=== PATIENT | male | born 1980 | race Two or more races ===

== ENCOUNTER 2020-08-01 21:24 | Emergency (ER) | payer SELFPAY ==
[2020-08-01 21:29] VITALS: Wt 100.0 kg
[2020-08-01 22:00] LABS: BASOPHILS 0.5 % (0-2); EOSINOPHILS 1.3 % (0-7); HEMATOCRIT 42.5 % (42.0-54.0); IMMATURE GRANULOCYTES 0.1 % (0-5); LYMPHOCYTE ABS# 1.83 10x3/uL (1.32-3.57); MCH 35.5 pg (26.0-34.0); MCHC 35.3 g/dL (31.0-37.0); MCV 100.5 fL (80.0-100.0); MEAN PLATELET VOLUME 10.4 fL (7.4-10.4); MONOCYTES 9.7 % (2-11); NEUTROPHIL ABS# 5.19 10x3/uL (1.78-5.38); NEUTROPHILS 65.4 % (40-80); PLATELET COUNT 150 10x3/uL (130-400); RBC 4.23 10x6/uL (4.20-6.10); RDW 11.8 % (11.5-14.5); WBC 7.9 10x3/uL (4.8-10.8)
[2020-08-01 22:58] LABS: CREATININE - SERUM 1.1 mg/dL (0.6-1.3); GLUCOSE 327 mg/dL (74-106); LIPASE 67 U/L (73-393); UREA NITROGEN 14 mg/dL (7-18); eGFR NON AFRICAN AMERICAN 79 mL/min (90-120)
[2020-08-01 22:59] LABS: CALC OSMOLALITY 272 mosm/kg (275-300); CHLORIDE - SERUM 91 mmol/L (98-107); POTASSIUM - SERUM 4.8 mmol/L (3.5-5.1); SODIUM 129 mmol/L (136-145); UDS - AMPHET POSITIVE QUAL (NEGATIVE); UDS - BARB NEGATIVE QUAL (NEGATIVE); UDS - BENZO NEGATIVE QUAL (NEGATIVE); UDS - COCAINE NEGATIVE QUAL (NEGATIVE); UDS - OPIATE NEGATIVE QUAL (NEGATIVE); UDS - PCP NEGATIVE QUAL (NEGATIVE); UDS - THC NEGATIVE QUAL (NEGATIVE)
[2020-08-01 23:00] LABS: CALCIUM 8.4 mg/dL (8.5-10.1); CARBON DIOXIDE 26.7 mmol/L (21.0-32.0)
[2020-08-01 23:01] LABS: ALBUMIN 3.7 g/dL (3.4-5.0); ALKALINE PHOSPHATASE 296 U/L (30-120); ALT (SGPT) 122 U/L (10-68); PROTEIN - SERUM 7.4 g/dL (6.4-8.2)
[2020-08-02 01:00] VITALS: BP 165/89
[2020-08-03 11:11] LABS: HEPATITIS C ANTIBODY <0.1 S/CO RAT (0.0-0.9)
== END 2020-08-02 01:03 | disposition home or self-care (01) ==
LOC: D.ER 21:24
PROVIDERS: Family Medicine
DX: R10.11 Right upper quadrant pain (principal); F10.20 Alcohol dependence, uncomplicated; R94.5 Abnormal results of liver function studies; E87.1 Hypo-osmolality and hyponatremia; R25.2 Cramp and spasm; R11.2 Nausea with vomiting, unspecified